=== PATIENT | male | born 1960 | race Caucasian/White ===

== ENCOUNTER → 2019-03-30 | Outpatient (CLI) | payer BC ==
--- NOTE | 2019-03-30 14:28 | KCIC ---
EXAM: Lumbar spine, flexion and extension. HISTORY: Pain. COMPARISON: None. FINDINGS: Lateral neutral, flexion and extension views of the lumbar spine are obtained. There is grade 1 anterolisthesis of L4 on L5 in neutral position. This slightly increases with flexion. There is minimal retrolisthesis of L3 on L4 with flexion and L2 on L3 with extension. There is multilevel endplate remodeling with anterior predominant spurring. There is facet arthropathy predominantly at the mid lower lumbar levels. IMPRESSION: 1. Multilevel degenerative change, described above. 2. Grade 1 anterolisthesis of L4 and L5 which slightly increases with flexion, retrolisthesis of L3 on L4 with flexion and retrolisthesis of L2 on L3 with extension. Electronically signed by: Jessi Mejias MD (03/30/2019 2:25 PM) [facility] [place]
== END | disposition home or self-care (01) ==
LOC: KCIC 12:26
PROVIDERS: ATTEND Neurological Surgery
DX: M47.816 Spondylosis without myelopathy or radiculopathy, lumbar region (principal); M43.16 Spondylolisthesis, lumbar region
CPT/HCPCS: 72100

== ENCOUNTER 2019-04-28 10:44 | Inpatient (IN) | payer BC ==
--- NOTE | 2019-04-27 17:32 | HP ---
ADMIT DATE: PREOPERATIVE HISTORY AND PHYSICAL This is Gonzalo Cano RN dictating for Dr. Gordo Hill. DATE OF SURGERY: 04/28/2019 HISTORY OF PRESENT ILLNESS: The patient is a pleasant 58-year-old, who has problems with both neck and lower back pain. He relates that his neck pain is more severe than his lower back pain. He says that if he looks to the left, he develops pain, which radiates down his right arm. If he looks to the right, he develops pain that radiates down his left arm. He noticed weakness on his right side and in the right hand and says he can drop things. He has had difficulty with balance and stumbles frequently. He also complains of lower back pain. He states 2 years ago, he fell on the porch. He says that he has constant lower back pain and has difficulty with standing for any length of time. He notes increasing back pain with standing along with feelings of weakness in his legs. Cold makes the problem worse. Heat helps. He does take Palacios. He has had no conservative measures for his lower back. He did undergo epidural steroid injections in the past for his neck. PAST MEDICAL HISTORY: Arthritis, gout, hypertension, head or neck injury, and kidney stones. PAST SURGICAL HISTORY: Appendectomy in 1984, cervical surgery in 2002, cervical surgery in 2007, tonsillectomy in 2012, and 2 finger surgeries, 3 knee surgeries. FAMILY HISTORY: Cancer, heart problems or disease, and hypertension. 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 ALLERGIES: HYDROGEN PEROXIDE. CURRENT MEDICATIONS: Omeprazole, allopurinol, lisinopril, hydrocodone/acetaminophen, ibuprofen, multivitamin, vegetable laxative, meloxicam, hydrochlorothiazide, aspirin, Ambien, and gabapentin. REVIEW OF SYSTEMS: A 12-point review of systems was obtained and is noncontributory except for that mentioned above. PHYSICAL EXAMINATION: GENERAL APPEARANCE: On neurosurgical examination, alert, pleasant, no acute distress. HEAD: Normocephalic and atraumatic. NECK AND THYROID: Aksv-od-ihzdpjyy tenderness with palpation of posterior cervical region. SKIN: Warm and dry. BACK: Tenderness with palpation of the lower lumbar spine. MUSCULOSKELETAL: Cervical and lumbar paraspinal muscle bulk is normal; cervical and lumbar range of motion is restricted; normal range of motion of the upper extremities bilaterally. EXTREMITIES: No clubbing, cyanosis, or edema. NEUROLOGIC: Alert and oriented x3; normal recent and remote memory; strength 5/5 in bilateral lower and upper extremities except for hand grasp that was 4+/5 bilaterally. Sensory was intact to light touch in the upper and lower extremities. Reflexes were present and symmetric in the upper and lower extremities bilaterally except for absent knee jerk bilaterally, normal gait. IMAGING: Reviewed. I reviewed a cervical MRI scan. On that study, there is moderate cervical spinal stenosis present at C3-C4 and C4-C5. The cord is flattened; however, I did not see hyperintensity with spinal cord. On lumbar MRI scan, there is a grade 1 anterolisthesis of L4 and L5. At that level, there is severe central canal stenosis. The central canal is measuring about 5 mm in diameter. Flexion and extension films were performed in which there is about 4 mm of anterolisthesis of L4 and L5, which increases slightly with flexion. ASSESSMENT: 1. Spinal stenosis, cervical region. 2. Other spondylosis with radiculopathy, cervical region. 3. Spinal stenosis, lumbar region with neurogenic claudication. 4. Spondylolisthesis, lumbar region. PLAN: I do think that the patient has symptomatic cervical spinal stenosis. He could benefit from a cervical laminectomy with lateral mass fusion with instrumentation. With regard to his lower back, he does have severe stenosis and spondylolisthesis at L4-L5. At some point, he may require an instrumented fusion and laminectomy at that level. I discussed all this with him. We discussed the technique, risks, and expected postoperative course. He understands. He would like to go ahead. We will make the arrangements. GORDO HILL MD DR: MALOU/chloe JOB#: [id number] / [id number]
[2019-04-28] VITALS (9 sets, daily range): BP systolic 74–130; BP diastolic 45–90
[~2019-04-28] VITALS: Ht 177.8 cm; Wt 104.1 kg
[~2019-04-28 10:44] MED LIST: ALLO300T PO; ASPI-630 PO; BACITRACIN 50,000 UNIT in IV NORMAL SALINE 1000ML BAG 1,000 ML IRR ONE; GABA600T7 PO; HYDR-2769 PO; HYDR25TA10 PO; HYDROmorphone 2 MG/ML VIAL IV PRN; IV RINGERS,LACTATED 1000ML 1,000 ML IV SCH; MELO15TA23 PO; MORPHINE SULFATE 2 MG/ML VIAL. IV PRN; MULT-245 PO; OMEP40CA45 PO; ONDANSETRON PF 4 MG/2 ML VIAL. IV PRN; PROCHLORPERAZINE 10 MG/2 ML VIAL. IV PRN; SENN8.6T61 PO; ZOLP5TAB5 PO; fentaNYL PF VIAL 100 MCG/2 ML VIAL IV PRN
[2019-04-28] MEDS ORDERED: PROPOFOL 100 ML IV ONE (10:54)
[2019-04-28] MEDS ORDERED: GLYCOPYRROLATE 1 MG/5 ML VIAL. ONE (10:58)
[2019-04-28] MEDS ORDERED: MIDAZOLAM HCL/PF 2 MG/2 ML VIAL. ONE (10:59)
[2019-04-28] MEDS ORDERED: ROCURONIUM 50 MG/5 ML VIAL. ONE (10:59)
[2019-04-28] MEDS ORDERED: fentaNYL PF VIAL 100 MCG/2 ML VIAL ONE ×2 (10:59→18:07)
[2019-04-28] MEDS ORDERED: NEOSTIGMINE METHYLSULFATE 5 MG/5 ML SYRINGE. ONE (10:59)
[2019-04-28] MEDS ORDERED: PHENYLEPHRINE 10 MG/ML VIAL. ONE (10:59)
[2019-04-28] MEDS ORDERED: PROPOFOL 20 ML IV ONE (11:00)
[2019-04-28] MEDS ORDERED: ONDANSETRON PF 4 MG/2 ML VIAL. ONE (11:00)
[2019-04-28] MEDS ORDERED: LIDOCAINE 2% PF 5 ML VIAL. ONE (11:00)
[2019-04-28] MEDS ORDERED: DEXAMETHASONE SOD PHOS 20 MG/5 ML VIAL. ONE ×2 (11:00)
[2019-04-28] MEDS ORDERED: REMIFENTANIL 2 MG VIAL. IV ONE (11:03)
[2019-04-28] MEDS ORDERED: KETOROLAC 60 MG/2 ML VIAL. ONE (11:50)
[2019-04-28] MEDS ORDERED: BUPIVACAINE-EPI 0.5%-1:200000 MPF 30 ML VIAL. ONE (11:50)
[2019-04-28] MEDS ORDERED: GELATIN SPONGE SIZE 100. ONE (11:50)
[2019-04-28] MEDS ORDERED: THROMBIN TOPICAL 20,000 UNIT SPRAY.SYRN KIT TP ONE (11:50)
[2019-04-28] MEDS ORDERED: POVIDONE-IODINE 10% TOPICAL OINTMENT 28GM TUBE. TP ONE (13:10)
[2019-04-28] MEDS ORDERED: ePHEDrine PF IN SALINE 50 MG/10 ML SYRINGE. IV ONE (13:37)
[2019-04-28] MEDS ORDERED: REMIFENTANIL 1 MG VIAL. IV ONE (16:31)
[2019-04-28] MEDS ORDERED: ESMOLOL 100 MG/10 ML VIAL. IVP ONE (17:30)
[2019-04-28] MEDS ORDERED: oxyCODONE/APAP 5/325 1 TAB TABLET PO PRN (18:00)
[2019-04-28] MEDS ORDERED: diphenhydrAMINE HCL 25 MG CAPSULE PO PRN (18:00)
[2019-04-28] MEDS ORDERED: ONDANSETRON PF 4 MG/2 ML VIAL. IVP PRN (18:00)
[2019-04-28] MEDS ORDERED: CALCIUM CARBONATE 500 MG TAB.CHEW PO PRN (18:00)
[2019-04-28] MEDS ORDERED: NALOXONE 0.4 MG/ML VIAL. IV PRN (18:00)
[2019-04-28] MEDS ORDERED: ACETAMINOPHEN 325 MG TABLET. PO PRN (18:00)
[2019-04-28] MEDS ORDERED: MAG HYDROX/ALUMINUM HYD/SIMETH 30 ML ORAL.SUSP PO PRN (18:00)
[2019-04-28] MEDS ORDERED: MAGNESIUM HYDROXIDE 2,400 MG/30 ML ORAL.SUSP. PO PRN (18:00)
[2019-04-28] MEDS ORDERED: 0.9 % SODIUM CHLORIDE 10 ML DISP.SYRIN. IV PRN (18:00)
[2019-04-28] MEDS: fentaNYL PF VIAL 100 MCG/2 ML VIAL IV PRN ×2 (18:10→18:19)
[2019-04-28] MEDS ORDERED: HYDROmorphone 2 MG/ML VIAL ONE (18:28)
--- NOTE | 2019-04-28 19:40 | OP ---
DATE OF SURGERY: 04/28/2019 PREOPERATIVE DIAGNOSES: Cervical spinal stenosis C3-C4, C4-C5 with cervical myelopathy. POSTOPERATIVE DIAGNOSES: Cervical spinal stenosis C3-C4, C4-C5 with cervical myelopathy. OPERATION PERFORMED: Posterior cervical laminectomy C3, C4, C5 with posterior lateral mass instrumentation and facet fusion. SURGEON: Gordo Hill M.D. HISTOPATHOLOGIST: PAIGE Montez; assisted with the instrumentation, laminectomy and closure. OPERATIVE INDICATIONS: The patient is a pleasant 58-year-old man who developed intractable problems with numbness in his forearms and hands. He was dropping objects. He was unsteady with regard to his gait and he had the above-mentioned findings on imaging studies. I recommended a posterior cervical surgery. I spoke with him about the surgery and the risks. He understood and he wished to go ahead. DESCRIPTION OF PROCEDURE: Following general endotracheal anesthesia, the patient was positioned prone on the Juice table in Bailey pins. His posterior cervical region was then clipped, prepped and draped in the standard fashion. DIONISIO hose and AV impulse boots were applied for DVT prophylaxis. The microscope was draped. Fluoroscopy was draped and brought into the field. Monitoring was established. Ancef 2 g was given less than 1 hour prior to the initiation of the surgery. Using fluoroscopic guidance, a midline incision was made extending from the base of the skull, inferiorly to about C6. I dissected down through skin and subcutaneous tissue, reflected the paraspinal muscles and placed self-retaining retractors. I brought in the high speed air drill and I drilled small openings in the lateral masses of C3, C4 and C5 and then drilled and then placed 10 mm screws into each of those levels bilaterally. I bent rods, which were cut to fit and placed within the screws and the nuts were applied and the system was torqued. I then brought in the microscope and using microscopic technique and the high speed bur, I gently drilled troughs on each side extending from C3-C5 and then with a 2 mm micro Kerrison, I performed a laminectomy from superiorly to inferiorly on each. The lamina and the spinous processes were removed posteriorly. I grasped this process inferiorly, freed it up and began to free this up and peel the spinous processes and lamina away from C5, C4, and C3, lifting these away. I then explored carefully. I felt I had an excellent decompression. I did excoriate the bone and the facets bilaterally and placed autograft bone from the lamina into these spaces bilaterally. I irrigated copiously with antibiotic solution. I confirmed my surgery fluoroscopically and then I closed the wound in layers with absorbable suture and the skin was closed with skin julio c. The patient was awakened uneventfully with excellent strength in his upper and lower extremities. I was quite pleased with the surgery. GORDO HILL MD DR: MALOU/chloe JOB#: [id number] / [id number] MICHELLE
[2019-04-28] MEDS: oxyCODONE/APAP 5/325 1 TAB TABLET PO PRN (19:49)
[2019-04-28] MEDS: POTASSIUM CL 20MEQ D5-0.45NACL 1,000 ML IV SCH (19:51)
[2019-04-28] MEDS: DOCUSATE SODIUM 100 MG CAPSULE. PO SCH (21:36)
[2019-04-28] MEDS: GABAPENTIN 300 MG CAPSULE. PO SCH (21:36)
[2019-04-28] MEDS: fentaNYL PF VIAL 100 MCG/2 ML VIAL IVP PRN (21:36)
[2019-04-28] MEDS: ceFAZolin SODIUM IV Push 1 GM VIAL. IVP SCH (21:42)
--- NOTE | 2019-04-28 22:53 | NUR ---
Pt. arrived on unit at 1850 by bed from PACU. Bedside report was given to this RN by day shift floor RN. Pt. complains pain is 8/10. Pt. is on 2L NC and pleasant. Explained to pt. the need to urinate within 6 hours. Bed is in lowest position with call light in reach. Will continue to monitor.
[2019-04-28] MEDS: ZOLPIDEM 5 MG TABLET. PO PRN (23:07)
[2019-04-29 03:00] VITALS: BP 106/76
[2019-04-29] MEDS: PANTOPRAZOLE 40 MG TABLET.DR. PO SCH (07:13)
[2019-04-29] MEDS: ceFAZolin SODIUM IV Push 1 GM VIAL. IVP SCH ×2 (07:13→13:47)
[2019-04-29 07:15] VITALS: BP 127/71
--- NOTE | 2019-04-29 08:00 | NUR ---
dressing changed to posterior neck. cleansed with chlor prep,telfa and 4x4's. states the numbness is going away just a little in her right hand. rating her pain "5'
[2019-04-29] MEDS: MULTIVITAMIN with MINERAL TABLET. PO SCH (08:06)
[2019-04-29] MEDS: METHOCARBAMOL 750 MG TABLET PO PRN ×2 (08:06→13:49)
[2019-04-29] MEDS: ASPIRIN CHEWABLE 81 MG TABLET. PO SCH (08:06)
[2019-04-29] MEDS: DOCUSATE SODIUM 100 MG CAPSULE. PO SCH ×2 (08:06→22:27)
[2019-04-29] MEDS: GABAPENTIN 300 MG CAPSULE. PO SCH ×2 (08:07→22:27)
[2019-04-29] MEDS: ALLOPURINOL 300 MG TABLET. PO SCH (08:07)
[2019-04-29] MEDS: SENNOSIDES 8.6 MG TABLET PO SCH (08:07)
[2019-04-29] MEDS: hydroCHLOROthiazide 25 MG TABLET PO SCH (08:08)
[2019-04-29] MEDS: POTASSIUM CL 20MEQ D5-0.45NACL 1,000 ML IV SCH ×2 (08:50→22:28)
--- NOTE | 2019-04-29 09:24 | NUR ---
SW following. Discussed with RN, pt from home. PT ordered. RN anticipates possible discharge home today. SW will continue to follow.
[2019-04-29 11:10] VITALS: BP 136/76
[2019-04-29] MEDS: oxyCODONE/APAP 5/325 1 TAB TABLET PO PRN ×2 (11:39→20:12)
--- NOTE | 2019-04-29 14:00 | NUR ---
sitting up in recliner. ambulated in hallway. pain is a "5". muscle relaxant given and dressing changed same as before.
[2019-04-29 15:07] VITALS: BP 144/90
--- NOTE | 2019-04-29 17:00 | NUR ---
Edilberto is resting in bed.states that he catnapped but now his pain is "10" tearful given fentanyl iv.
[2019-04-29] MEDS: fentaNYL PF VIAL 100 MCG/2 ML VIAL IVP PRN ×3 (17:07→22:29)
--- NOTE | 2019-04-29 18:30 | NUR ---
don states that the pain is very slightly less--"9" re-medicated with fentanyl and returned to bed. voided per urinal. ice remain to back of neck
[2019-04-29 19:00] VITALS: BP 131/89
[2019-04-29 23:00] VITALS: BP 129/88
[2019-04-30 03:00] VITALS: BP 150/89
[2019-04-30] MEDS: fentaNYL PF VIAL 100 MCG/2 ML VIAL IVP PRN ×4 (03:02→16:12)
[2019-04-30 07:00] VITALS: BP 136/86
[2019-04-30] MEDS: SENNOSIDES 8.6 MG TABLET PO SCH (08:14)
[2019-04-30] MEDS: ASPIRIN CHEWABLE 81 MG TABLET. PO SCH (08:14)
[2019-04-30] MEDS: MULTIVITAMIN with MINERAL TABLET. PO SCH (08:14)
[2019-04-30] MEDS: DOCUSATE SODIUM 100 MG CAPSULE. PO SCH ×2 (08:14→20:56)
[2019-04-30] MEDS: GABAPENTIN 300 MG CAPSULE. PO SCH ×2 (08:15→20:56)
[2019-04-30] MEDS: ALLOPURINOL 300 MG TABLET. PO SCH (08:15)
[2019-04-30] MEDS: oxyCODONE/APAP 5/325 1 TAB TABLET PO PRN (08:15)
[2019-04-30] MEDS: hydroCHLOROthiazide 25 MG TABLET PO SCH (08:15)
[2019-04-30] MEDS: PANTOPRAZOLE 40 MG TABLET.DR. PO SCH (08:15)
--- NOTE | 2019-04-30 09:56 | PDOC ---
PROGRESS NOTES Subjective Subjective POD #2 sitting up in chair c/o severe neck/ incision pain worsened overnight numbness in hands remains gone Objective Objective Vital Signs Date Time Temp Pulse Resp B/P (MAP) Pulse Ox O2 Delivery O2 Flow Rate FiO2 04/30/19 09:28 16 Room Air 04/30/19 07:00 98.7 81 136/86 (103) 94 98.7 04/29/19 09:00 1.5 Intake and Output 04/30/19 06:59 Intake Total 640 ml Output Total 1000 ml Balance -360 ml Intake Oral 640 ml Output Urine Total 1000 ml # Voids 5 # Bowel Movements 1 Physical Exam General: Alert, Oriented X3, Cooperative MUSCULOSKELETAL: Other (LUA) Neuro: Normal speech Skin: Other (dressing dry and intact) Plan Plan of Care change pain medicine add steroids encouraged increased activity as tolerated D/W RN Comment Review of Relevant I have reviewed the following items manny (where applicable) has been applied. Medications Current Medications Bacitracin 31961 unit/Sodium Chloride 1,000 ml @ 1,000 mls/hr 1X ONCE IRR Last administered on 04/28/19at 14:43; Start 04/28/19 at 06:00; Stop 04/28/19 at 06:59; Status DC Ondansetron HCl (Zofran) 4 mg PRN Q6HRS PRN IV NAUSEA/VOMITING; Start 04/28/19 at 07:00; Stop 04/29/19 at 06:59; Status DC Fentanyl Citrate (Fentanyl 2ml Vial) 25 mcg PRN Q5MIN PRN IV MILD PAIN 1-3; Start 04/28/19 at 07:00; Stop 04/29/19 at 06:59; Status DC Fentanyl Citrate (Fentanyl 2ml Vial) 50 mcg PRN Q5MIN PRN IV MODERATE TO SEVERE PAIN Last administered on 04/28/19at 18:10; Start 04/28/19 at 07:00; Stop 04/29/19 at 06:59; Status DC Morphine Sulfate (Morphine Sulfate) 1 mg PRN Q10MIN PRN IV SEVERE PAIN 7-10; Start 04/28/19 at 07:00; Stop 04/29/19 at 06:59; Status DC Ringer's Solution 1,000 ml @ 30 mls/hr Q24H IV Last administered on 04/28/19at 11:22; Start 04/28/19 at 07:00; Stop 04/28/19 at 18:59; Status DC Hydromorphone HCl (Dilaudid) 0.5 mg PRN Q10MIN PRN IV SEV PAIN, Second choice Last administered on 04/28/19at 18:30; Start 04/28/19 at 07:00; Stop 04/29/19 at 06:59; Status DC Prochlorperazine Edisylate (Compazine) 5 mg PACU PRN PRN IV NAUSEA, MRX1; Start 04/28/19 at 07:00; Stop 04/29/19 at 06:59; Status DC Cefazolin Sodium/ Dextrose 50 ml @ 100 mls/hr 1X ONCE IV Last administered on 04/28/19at 14:10; Start 04/28/19 at 06:00; Stop 04/28/19 at 06:29; Status DC Propofol 100 ml @ As Directed STK-MED ONCE IV ; Start 04/28/19 at 10:54; Stop 04/28/19 at 10:54; Status DC Glycopyrrolate (Robinul) 1 mg STK-MED ONCE .ROUTE ; Start 04/28/19 at 10:58; Stop 04/28/19 at 10:59; Status DC Fentanyl Citrate (Fentanyl 2ml Vial) 100 mcg STK-MED ONCE .ROUTE ; Start 04/28/19 at 10:59; Stop 04/28/19 at 10:59; Status DC Rocuronium [place] (Zemuron) 50 mg STK-MED ONCE .ROUTE ; Start 04/28/19 at 10:59; Stop 04/28/19 at 10:59; Status DC Neostigmine [place] (Neostigmine Methylsulfate) 5 mg STK-MED ONCE .ROUTE ; Start 04/28/19 at 10:59; Stop 04/28/19 at 10:59; Status DC Midazolam HCl (Versed) 2 mg STK-MED ONCE .ROUTE ; Start 04/28/19 at 10:59; Stop 04/28/19 at 10:59; Status DC Phenylephrine HCl (Erickson-Synephrine Inj) 10 mg STK-MED ONCE .ROUTE ; Start 04/28/19 at 10:59; Stop 04/28/19 at 11:00; Status DC Propofol 20 ml @ As Directed STK-MED ONCE IV ; Start 04/28/19 at 11:00; Stop 04/28/19 at 11:00; Status DC Dexamethasone Sodium Phosphate (Decadron) 20 mg STK-MED ONCE .ROUTE ; Start 04/28/19 at 11:00; Stop 04/28/19 at 11:00; Status DC Dexamethasone Sodium Phosphate (Decadron) 20 mg STK-MED ONCE .ROUTE ; Start 04/28/19 at 11:00; Stop 04/28/19 at 11:00; Status DC Ondansetron HCl (Zofran) 4 mg STK-MED ONCE .ROUTE ; Start 04/28/19 at 11:00; Stop 04/28/19 at 11:00; Status DC Lidocaine HCl (Lidocaine Pf 2% Vial) 5 ml STK-MED ONCE .ROUTE ; Start 04/28/19 at 11:00; Stop 04/28/19 at 11:00; Status DC Remifentanil HCl (Ultiva) 2 mg STK-MED ONCE IV ; Start 04/28/19 at 11:03; Stop 04/28/19 at 11:03; Status DC Gelatin (Gelfoam Size 100) 1 each STK-MED ONCE .ROUTE Last administered on 04/28/19at 14:43; Start 04/28/19 at 11:50; Stop 04/28/19 at 11:50; Status DC Bupivacaine HCl/ Epinephrine Bitart (Sensorcain-Epi 0.5%-1:041502 Mpf) 30 ml STK-MED ONCE .ROUTE Last administered on 04/28/19at 14:43; Start 04/28/19 at 11:50; Stop 04/28/19 at 11:50; Status DC Ketorolac Tromethamine (Toradol Im) 60 mg STK-MED ONCE .ROUTE Last administered on 04/28/19at 14:43; Start 04/28/19 at 11:50; Stop 04/28/19 at 11:51; Status DC Thrombin 20,000 unit STK-MED ONCE TP Last administered on 04/28/19at 14:43; Start 04/28/19 at 11:50; Stop 04/28/19 at 11:51; Status DC Povidone Iodine ( Betadine Oint) 28 oracio STK-MED ONCE TP ; Start 04/28/19 at 13:10; Stop 04/28/19 at 13:10; Status DC Ephedrine Sulfate (ePHEDrine PF IN SALINE SYRINGE) 50 mg STK-MED ONCE IV ; Start 04/28/19 at 13:37; Stop 04/28/19 at 13:38; Status DC Remifentanil HCl (Ultiva) 1 mg STK-MED ONCE IV ; Start 04/28/19 at 16:31; Stop 04/28/19 at 16:32; Status DC Esmolol HCl (Brevibloc) 100 mg STK-MED ONCE IVP ; Start 04/28/19 at 17:30; Stop 04/28/19 at 17:31; Status DC Allopurinol (Zyloprim) 300 mg DAILY PO Last administered on 04/30/19 08:15; Start 04/29/19 at 09:00 Aspirin (Children'S Aspirin) 81 mg DAILY PO Last administered on 04/30/19at 08:14; Start 04/29/19 at 09:00 Hydrochlorothiazide (Hydrodiuril) 25 mg DAILY PO Last administered on 04/30/19at 08:15; Start 04/29/19 at 09:00 Sennosides (Senna) 8.6 mg DAILY PO Last administered on 04/30/19 08:14; Start 04/29/19 at 09:00 Zolpidem Tartrate (Ambien) 10 mg PRN QHS PRN PO INSOMNIA Last administered on 04/28/19at 23:07; Start 04/28/19 at 18:00 Gabapentin (Neurontin) 300 mg BID PO Last administered on 04/30/19 08:15; Start 04/28/19 at 21:00 Multivitamins (Thera M Plus) 1 tab DAILY PO Last administered on 04/30/19 08:14; Start 04/29/19 at 09:00 Pantoprazole Sodium (Protonix) 40 mg DAILYAC PO Last administered on 04/30/19 08:15; Start 04/29/19 at 07:30 Fentanyl Citrate (Fentanyl 2ml Vial) 100 mcg STK-MED ONCE .ROUTE ; Start 04/28/19 at 18:07; Stop 04/28/19 at 18:07; Status DC Fentanyl Citrate (Fentanyl 2ml Vial) 50 mcg PRN Q2HR PRN IVP PAIN Last administered on 3/20/20at 09:25; Start 04/28/19 at 18:00 Acetaminophen (Tylenol) 650 mg PRN Q6HRS PRN PO MILD PAIN / TEMP; Start 04/28/19 at 18:00 Al Hydroxide/Mg Hydroxide (Mylanta Plus Xs) 30 ml PRN Q3HRS PRN PO HEARTBURN / GAS; Start 04/28/19 at 18:00 Calcium Carbonate/ Glycine (Tums) 500 mg PRN Q3HRS PRN PO INDIGESTION; Start 04/28/19 at 18:00 Diphenhydramine HCl (Benadryl) 25 mg PRN Q6HRS PRN PO ITCHING; Start 04/28/19 at 18:00 Naloxone HCl (Narcan) 0.1 mg PRN Q2MIN PRN IV ADMIN; Start 04/28/19 at 18:00 Sodium Chloride (Normal Saline Flush) 3 ml QSHIFT PRN IV AFTER MEDS AND BLOOD DRAWS; Start 04/28/19 at 18:00 Potassium Chloride/Dextrose/ Sod Cl 1,000 ml @ 75 mls/hr [id number] IV Last administered on 04/29/19at 22:28; Start 04/28/19 at 19:30 Oxycodone/ Acetaminophen (Percocet 5/325) 1 tab PRN Q4HRS PRN PO MILD PAIN, 1ST CHOICE Last administered on 04/29/19at 08:06; Start 04/28/19 at 18:00; Stop 04/30/19 at 09:52; Status DC Oxycodone/ Acetaminophen (Percocet 5/325) 2 tab PRN Q4HRS PRN PO MODERATE PAIN, SEVERE PAIN Last administered on 04/30/19at 08:15; Start 04/28/19 at 18:00; Stop 04/30/19 at 09:52; Status DC Methocarbamol (Robaxin) 750 mg TID PRN PO MUSCLE SPASMS Last administered on 04/29/19at 13:49; Start 04/28/19 at 18:00 Docusate Sodium (Colace) 100 mg BID PO Last administered on 04/30/19at 08:14; Start 04/28/19 at 21:00 Magnesium Hydroxide (Milk Of Magnesia) 2,400 mg PRN Q12HR PRN PO CONSTIPATION; Start 04/28/19 at 18:00 Ondansetron HCl (Zofran) 4 mg PRN Q6HRS PRN IVP NAUESA, 1ST CHOICE; Start 04/28/19 at 18:00 Cefazolin Sodium (Ancef) 1 gm Q8HRS IVP Last administered on 04/29/19at 13:47; Start 04/28/19 at 22:00; Stop 04/29/19 at 14:01; Status DC Hydromorphone HCl (Dilaudid) 2 mg STK-MED ONCE .ROUTE ; Start 04/28/19 at 18:28; Stop 04/28/19 at 18:28; Status DC Oxycodone HCl (Roxicodone) 10 mg Q4HRS PRN PO PAIN; Start 04/30/19 at 10:00; Status UNV Active Scripts Active Reported Gabapentin 600 Mg Tablet 300 Mg PO BID Vegetable Laxative (Sennosides) 8.6 Mg Tablet 8.6 Mg PO DAILY Multi Vitamin Daily (Multivitamin) 1 Each Tablet 1 Each PO DAILY Aspirin 81 Mg Tab.chew 81 Mg PO DAILY Allopurinol 300 Mg Tablet 300 Mg PO DAILY Omeprazole 40 Mg Capsule.dr 40 Mg PO DAILY Hydrochlorothiazide 25 Mg Tablet 25 Mg PO DAILY Meloxicam 15 Mg Tablet 15 Mg PO DAILY Zolpidem Tartrate 5 Mg Tablet 110 Mg PO PRN QHS PRN Hydrocodone-Apap 10-325 (Hydrocodone Bit/Acetaminophen) 1 Tab Tablet 1 Tab PO PRN Q6HRS PRN Vitals/I & O Vital Sign - Last 24 Hours 04/29/19 04/29/19 04/29/19 04/29/19 11:10 11:39 12:30 15:07 Temp 97.9 98.1 97.9 98.1 Pulse 81 86 Resp 16 20 18 B/P (MAP) 136/76 (96) 144/90 (108) Pulse Ox 97 96 O2 Delivery Room Air Room Air Room Air 04/29/19 04/29/19 04/29/19 04/29/19 17:30 18:23 19:00 19:00 Temp 98.5 98.5 Pulse 86 Resp 20 16 20 16 B/P (MAP) 131/89 (103) Pulse Ox 91 O2 Delivery Room Air 04/29/19 04/29/19 04/29/19 04/29/19 20:12 20:15 22:29 22:29 O2 Delivery Room Air Room Air Room Air Room Air 04/29/19 04/29/19 04/30/19 04/30/19 23:00 23:41 03:00 03:02 Temp 98.5 98.5 98.5 98.5 Pulse 75 79 Resp 18 18 B/P (MAP) 129/88 (102) 150/89 (109) Pulse Ox 92 93 O2 Delivery Room Air Room Air 04/30/19 04/30/19 04/30/19 04/30/19 03:32 06:45 07:00 07:49 Temp 98.7 98.7 Pulse 81 Resp 14 16 B/P (MAP) 136/86 (103) Pulse Ox 94 O2 Delivery Room Air Room Air Room Air Room Air 04/30/19 04/30/19 04/30/19 08:15 09:25 09:28 Resp 18 20 16 O2 Delivery Room Air Room Air Room Air Intake and Output 0 04/29/19 04/29/19 04/30/19 14:59 22:59 06:59 Intake Total 640 ml Output Total 1000 ml Balance -360 ml FEROZ HILL MD Apr 30, 2019 09:56
[2019-04-30] MEDS ORDERED: DEXAMETHASONE SOD PHOS 20 MG/5 ML VIAL. IV ONE (10:00)
[2019-04-30] MEDS: oxyCODONE IR 5 MG TABLET PO PRN ×3 (10:34→20:04)
[2019-04-30 11:00] VITALS: BP 125/75
[2019-04-30] MEDS: POTASSIUM CL 20MEQ D5-0.45NACL 1,000 ML IV SCH (11:30)
--- NOTE | 2019-04-30 11:38 | NUR ---
SW following. Discussed with RN, pt from home, room air. PT recommending home. RN advised no SW needs at this time. SW will continue to follow.
[2019-04-30 15:00] VITALS: BP 128/84
[2019-04-30] MEDS: DEXAMETHASONE SOD PHOS 4 MG/ML VIAL IVP SCH (17:32)
[2019-04-30 19:00] VITALS: BP 125/84
[2019-04-30] MEDS: ZOLPIDEM 5 MG TABLET. PO PRN (20:56)
[2019-04-30 23:00] VITALS: BP 120/77
[2019-05-01] MEDS: DEXAMETHASONE SOD PHOS 4 MG/ML VIAL IVP SCH ×3 (00:05→12:24)
[2019-05-01] MEDS: oxyCODONE IR 5 MG TABLET PO PRN ×4 (00:06→14:39)
[2019-05-01] MEDS: POTASSIUM CL 20MEQ D5-0.45NACL 1,000 ML IV SCH ×2 (00:50→14:10)
[2019-05-01 03:00] VITALS: BP 125/83
[2019-05-01 07:59] VITALS: BP 127/81
[2019-05-01] MEDS: MULTIVITAMIN with MINERAL TABLET. PO SCH (08:04)
[2019-05-01] MEDS: SENNOSIDES 8.6 MG TABLET PO SCH (08:04)
[2019-05-01] MEDS: DOCUSATE SODIUM 100 MG CAPSULE. PO SCH (08:04)
[2019-05-01] MEDS: ASPIRIN CHEWABLE 81 MG TABLET. PO SCH (08:04)
[2019-05-01] MEDS: PANTOPRAZOLE 40 MG TABLET.DR. PO SCH (08:04)
[2019-05-01] MEDS: ALLOPURINOL 300 MG TABLET. PO SCH (08:05)
[2019-05-01] MEDS: GABAPENTIN 300 MG CAPSULE. PO SCH (08:05)
[2019-05-01] MEDS: hydroCHLOROthiazide 25 MG TABLET PO SCH (08:05)
[2019-05-01] MEDS: METHOCARBAMOL 750 MG TABLET PO PRN ×2 (08:06→14:39)
[2019-05-01] MEDS ORDERED: DOCU-153 PO (11:32)
[2019-05-01] MEDS ORDERED: OXYC5TAB4 PO (11:32)
[2019-05-01] MEDS ORDERED: METH750T2 PO (11:32)
--- NOTE | 2019-05-01 11:32 | DS ---
DATE OF DISCHARGE: 05/01/2019 DISCHARGE DIAGNOSIS: Cervical spinal stenosis at C3-C4, C4-C5 with cervical myelopathy. OPERATION PERFORMED: Posterior cervical laminectomy C3, C4, C5 with posterior lateral mass instrumentation and facet fusion. HISTORY OF PRESENT ILLNESS: The patient is a pleasant 58-year-old man who developed intractable problems with numbness in his forearms and hands. He was dropping objects. He was unsteady with regard to his gait and he had the above-mentioned findings on imaging studies. I recommended posterior cervical surgery. He understood the surgery including the risk and the expected postoperative course and wished to proceed. HOSPITAL COURSE: He was admitted to the floor postoperatively where he has done well. His pain is now managed and controlled well with his current pain medication regimen. He was able to be up with physical therapy and ambulating in the room and halls. Instruction was given to him regarding his activities. He is in good condition to discharge home now. DISCHARGE MEDICATIONS: Resume his medications per the MRAD. DISCHARGE INSTRUCTIONS: He was instructed regarding incision care, activity restrictions and expectations for the next several weeks. He will follow up in our office in 2 weeks. He understands to call with any questions or concerns. He did note resolution of the numbness in his arms and hands. FEROZ HILL MD DR: SU/chloe JOB#: [id number] / [id number]
--- NOTE | 2019-05-01 11:33 | DISCH ---
DISCHARGE INSTRUCTIONS Condition on Discharge Condition on Discharge: Stable Activity After Discharge Activity Instructions for Disc: Activity as tolerated, Avoid exertion Other activity instructions: no driving Bathing Instructions: Shower-keep dressing dry Lifting Instructions after Dis: No heavy lifting, No pulling or pushing, Do not lift >10 pounds Driving Instructions after Dis: No driving for 2 weeks Diet after Discharge Additional Diet Restrictions: resume home diet Wound Incision Care Wound/Incision Care: Ice to area for comfort Other wound/incision instructi: may remove dressing in 48 hours if dry, ok to keep covered, no soaking Contacting the DRConnor after DC Call your doctor for: Concerns you may have Follow-Up Follow up with: Dr. Hill's nurse in 2 weeks [phone] FEROZ HILL MD May 01, 2019 11:33
[2019-05-01 11:59] VITALS: BP 148/76
--- NOTE | 2019-05-01 14:35 | NUR ---
Discharge teaching completed. IV site discontinued without difficulty. Pt states he understands his home medications and 2 new prescriptions. Pt was discharged to home via w/c, escorted out by staff to spouse's private vehicle. Teaching on dressing change done by Kimberly GIBSON
--- NOTE | 2019-05-03 16:06 | PATHOLOGY ---
[facility] Accession Number: [id number] . 01 Material submitted: . vertebral column - CERVICAL DECOMPRESSION . 01 Clinical history: . Cervical stenosis, spondylosis with radiculopathy . 02 Diagnosis: Segments of fibrocartilaginous, adipose, and skeletal muscle tissue and bone, cervical decompression: - Degenerative changes of fibrocartilaginous tissue. (JPM:pit 05/03/2019) QTP 05/03/2019 1545 Local . 02 Comment: There is no evidence of an acute inflammatory process or malignancy. . 02 Electronically signed: . Kenny Dillon MD, Pathologist NPI- [id number] . 01 Gross description: . The specimen is received in formalin, labeled "Rajiv Henriquez, cervical decompression". Received is a moderate amount of pale liu gritty tissue admixed with fragments of bone measuring 4.3 x 3.2 x 2.0 cm in aggregate dimensions. The specimen is submitted representatively in cassette A1, following decalcification. (CAA; 04/30/2019) QAC/QAC 05/03/2019 0920 Local . 02 Pathologist provided ICD-10: M50.30 . 02 CPT . 350119, [id number] Specimen Comment: A courtesy copy of this report has been sent to [phone] Specimen Comment: Report sent to Performed at: 01 [facility] [address], [place] [id number] MD Piyush Wilson MD Phone: [phone] Performed at: 02 [facility] [address], [place] [id number] MD Kenny Dillon MD Phone: [phone]
== END 2019-05-01 14:35 | disposition home or self-care (01) | DRG 472 ==
LOC: SURHIP 10:44 → 4 NORTH 19:15
PROVIDERS: ADMIT Neurological Surgery; ATTEND Neurological Surgery
PROC: 00NW0ZZ Release Cervical Spinal Cord, Open Approach (ICD-10-PCS; 2019-04-28)
PROC: 0RG1071 Fusion of Cervical Vertebral Joint with Autologous Tissue Substitute, Posterior Approach, Posterior Column, Open Approach (ICD-10-PCS; 2019-04-28)
PROC: 01N10ZZ Release Cervical Nerve, Open Approach (ICD-10-PCS; principal; 2019-04-28 12:30)
DX: M48.02 Spinal stenosis, cervical region (principal); G99.2 Myelopathy in diseases classified elsewhere; M47.22 Other spondylosis with radiculopathy, cervical region; M48.062 Spinal stenosis, lumbar region with neurogenic claudication; M19.90 Unspecified osteoarthritis, unspecified site; M10.9 Gout, unspecified; I10 Essential (primary) hypertension; M43.16 Spondylolisthesis, lumbar region; Z87.442 Personal history of urinary calculi; Z88.8 Allergy status to other drugs, medicaments and biological substances; Z80.9 Family history of malignant neoplasm, unspecified; Z82.49 Family history of ischemic heart disease and other diseases of the circulatory system
CPT/HCPCS: 36415; 76000; 86850; 86900; 86901; 88304; 88311; A7015; C1713; J0171; J0690; J0696; J1100; J1170; J1885; J2250; J2370; J2405; J2704; J2710; J3010; J3480; J3490; J7030; J7120; 97116; 97530; G0378

== ENCOUNTER → 2019-10-26 | Outpatient (CLI) | payer BC ==
[~2019-10-26] MED LIST changes: +ASPI81TA59 PO; -BACITRACIN 50,000 UNIT in IV NORMAL SALINE 1000ML BAG 1,000 ML IRR ONE; +DOCU-153 PO; +HYDR-2145 PO; +HYDR-2761 PO; -HYDROmorphone 2 MG/ML VIAL IV PRN; -IV RINGERS,LACTATED 1000ML 1,000 ML IV SCH; +LISI-130 PO; +METH750T2 PO; -MORPHINE SULFATE 2 MG/ML VIAL. IV PRN; -ONDANSETRON PF 4 MG/2 ML VIAL. IV PRN; +OXYC5TAB4 PO; -PROCHLORPERAZINE 10 MG/2 ML VIAL. IV PRN; +ZOLP10TA PO; -fentaNYL PF VIAL 100 MCG/2 ML VIAL IV PRN
[2019-10-26 14:23] LABS: BASO # 0.1 x10^3/uL (0.0-0.2); BASO % 1 % (0-3); EOS # 0.4 x10^3/uL (0.0-0.7); EOS % 5 % (0-3); HEMOGLOBIN 15.9 g/dL (13.0-17.5); LYMPH # 2.6 x10^3/uL (1.0-4.8); LYMPH % 31 % (24-48); MEAN CORPUSCULAR HEMOGLOBIN 33 pg (25-35); MEAN CORPUSCULAR HGB CONC 35 g/dL (31-37); MEAN CORPUSCULAR VOLUME 96 fL (79-100); MONO # 0.6 x10^3/uL (0.0-1.1); MONO % 8 % (0-9); NEUT # 4.6 x10^3/uL (1.8-7.7); NEUT % 56 % (31-73); PLATELET COUNT 234 x10^3/uL (140-400); RED BLOOD COUNT 4.78 x10^6/uL (4.30-5.70); RED CELL DISTRIBUTION WIDTH 13.6 % (11.5-14.5); WHITE BLOOD COUNT 8.3 x10^3/uL (4.0-11.0)
[2019-10-26 14:37] LABS: ALBUMIN/GLOBULIN RATIO 1.3 (1.0-1.7); CALCIUM 8.9 mg/dL (8.5-10.1); CREATININE 0.9 mg/dL (0.7-1.3); GFR 86.4; POTASSIUM 3.6 mmol/L (3.5-5.1); TOTAL BILIRUBIN 0.5 mg/dL (0.2-1.0); TOTAL PROTEIN 7.2 g/dL (6.4-8.2)
== END ==
LOC: SURGPAT 13:23
PROVIDERS: ATTEND Neurological Surgery
DX: Z01.812 Encounter for preprocedural laboratory examination (principal); M48.062 Spinal stenosis, lumbar region with neurogenic claudication; M54.16 Radiculopathy, lumbar region; Z20.828 Contact with and (suspected) exposure to other viral communicable diseases
CPT/HCPCS: 80053; 85025; 87641; U0003

== ENCOUNTER 2019-10-29 07:10 | Observation (INO) | payer BC ==
--- NOTE | 2019-10-28 15:46 | PREOP HP ---
DATE OF SERVICE: 10/29/2019 HISTORY OF PRESENT ILLNESS: The patient is a pleasant 59-year-old who in April 2019 underwent cervical laminectomy and fusion. He did well from that surgery. He is having increasing problems with lower back pain. He did present with both cervical and lumbar problems. He has had lower back pain. It radiates to his left thigh, left posterolateral thigh. The problem has been present for years, but it is gradually increasing. He has had difficulty getting up from a sitting position or standing. He rates his pain as a 5-6/10. He is taking Roosevelt twice a day. PAST MEDICAL HISTORY: 1. Arthritis. 2. Gout. 3. Head and neck injury. 4. Hypertension. 5. Kidney stones. PAST SURGICAL HISTORY: 1. Appendectomy in 1984. 2. Cervical surgery in 2002. 3. Cervical surgery in 2007. 4. Tonsillectomy in 2012. 5. Two finger surgeries. 6. Three knee surgeries. 7. Posterior cervical laminectomy C3, C4, C5 with posterior instrumentation and fusion in April 2019. FAMILY HISTORY: Family history of cancer, heart disease and hypertension. 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 . Exercises daily. Denies substance abuse. Denies tobacco use. Drinks alcohol 1-2 times per week. Drinks soda and tea daily. ALLERGIES: HYDROGEN PEROXIDE. CURRENT MEDICATIONS: 1. Omeprazole. 2. Allopurinol. 3. Lisinopril. 4. Multivitamin. 5. Vegetable laxative. 6. Meloxicam. 7. Hydrochlorothiazide. 8. Aspirin. 9. Ambien. 10. Gabapentin. 11. Zolpidem. 12. Roosevelt. REVIEW OF SYSTEMS: A 12-point review of systems was obtained and is noncontributory except for that mentioned above. PHYSICAL EXAMINATION: NEUROSURGERY EXAMINATION: GENERAL APPEARANCE: Alert, pleasant, in no acute distress. HEAD: Normocephalic and atraumatic. SKIN: Warm and dry. MUSCULOSKELETAL: Lumbar paraspinal muscle bulk is normal. Restricted range of motion of the lumbar spine. Mild to moderate tenderness of the lower lumbar spine with palpation. Normal range of motion of the lower extremities bilaterally. EXTREMITIES: No clubbing, cyanosis, or edema. NEUROLOGIC: Alert and oriented x 3. Normal recent and remote memory. Strength 5/5 in bilateral lower extremities. Sensory is intact to light touch in lower extremities. Reflexes were 2+ and symmetric in lower extremities bilaterally. Negative straight leg raising bilaterally, forward stooped posture. IMAGING: Reviewed. I reviewed a lumbar MRI scan from 10/08/2019. On that study, at L4-L5, there is a small anterolisthesis combined with significant lateral recess stenosis bilaterally and high-grade left foraminal narrowing. ASSESSMENT: 1. Spinal stenosis, lumbar region, with neurogenic claudication. 2. Radiculopathy, lumbar region. PLAN: I believe that problems at L4-L5 are responsible for a significant portion of his pain. I am recommending that he undergo left direct laminectomy at L4-L5. I spoke with him about the technique, surgery risks and expected postoperative course. He understands. He would like to go ahead. We will make the arrangements. FEROZ HILL MD DR: MALOU/chloe JOB#: [id number] / [id number]
[~2019-10-29] VITALS: Ht 177.8 cm; Wt 100.6 kg
[2019-10-29] VITALS (11 sets, daily range): BP systolic 93–138; BP diastolic 50–68
[~2019-10-29 07:10] MED LIST changes: +BACITRACIN 50,000 UNIT in IV NORMAL SALINE 1000ML BAG 1,000 ML IRR ONE; +BUPIVACAINE-EPI 0.5%-1:200000 MPF 30 ML VIAL. ONE; +GELATIN SPONGE SIZE 100. ONE; +HYDROmorphone 2 MG/ML VIAL IV PRN; +KETOROLAC 60 MG/2 ML VIAL. ONE; +LIDOCAINE 1% PF 2 ML VIAL. ID PRN; +ONDANSETRON PF 4 MG/2 ML VIAL. IV PRN; +THROMBIN TOPICAL 20,000 UNIT SPRAY.SYRN KIT TP ONE; +fentaNYL PF VIAL 100 MCG/2 ML VIAL IV PRN
[2019-10-29] MEDS: IV RINGERS,LACTATED 1000ML 1,000 ML IV SCH ×2 (07:51→11:23)
[2019-10-29] MEDS ORDERED: PROPOFOL 10 MG/ML (20ML) VIAL. IV ONE (08:30)
[2019-10-29] MEDS ORDERED: DEXAMETHASONE SOD PHOS 20 MG/5 ML VIAL. ONE (08:30)
[2019-10-29] MEDS ORDERED: LIDOCAINE 2% PF 5 ML VIAL. ONE (08:30)
[2019-10-29] MEDS ORDERED: PHENYLEPHRINE in 0.9% NACL PF 1 MG/10 ML SYRINGE. IV ONE (08:30)
[2019-10-29] MEDS ORDERED: ONDANSETRON PF 4 MG/2 ML VIAL. ONE (08:30)
[2019-10-29] MEDS ORDERED: ePHEDrine PF IN SALINE 50 MG/10 ML SYRINGE. IV ONE (08:31)
[2019-10-29] MEDS ORDERED: SUCCINYLCHOLINE 200 MG/10 ML VIAL. ONE (08:31)
[2019-10-29] MEDS ORDERED: ROCURONIUM 50 MG/5 ML VIAL. ONE (08:32)
[2019-10-29] MEDS ORDERED: MIDAZOLAM HCL/PF 2 MG/2 ML VIAL. ONE (08:33)
[2019-10-29] MEDS ORDERED: fentaNYL PF VIAL 100 MCG/2 ML VIAL ONE ×3 (08:34→11:55)
[2019-10-29] MEDS ORDERED: REMIFENTANIL 2 MG VIAL. IV ONE (08:34)
[2019-10-29] MEDS ORDERED: NEOSTIGMINE METHYLSULFATE 5 MG/5 ML SYRINGE. ONE (09:48)
[2019-10-29] MEDS ORDERED: PROPOFOL 50 ML IV ONE (10:02)
[2019-10-29] MEDS ORDERED: DESFLURANE > 120 MINUTES IH ONE (10:29)
--- NOTE | 2019-10-29 11:14 | OP ---
DATE OF SURGERY: 10/29/2019 PREOPERATIVE DIAGNOSES: Lumbar spinal stenosis, L4-L5 with left lumbar radiculopathy and neurogenic claudication. POSTOPERATIVE DIAGNOSES: Lumbar spinal stenosis, L4-L5 with left lumbar radiculopathy and neurogenic claudication. OPERATION PERFORMED: Left direct laminectomy L4-L5 with decompression of dura and the left L5 root. The operation was done with EMG monitoring, fluoroscopy, microscopic dissection. LEVEL VIAL INSPECTOR: PAIGE Montez assisted with the surgery. She assisted with the exposure, microdecompression as well as the closure. OPERATIVE INDICATIONS: The patient is a pleasant 59-year-old who developed intractable back and left leg pain, which failed conservative measures. On imaging studies, he had significant stenosis at L4-L5 and I recommended a left direct laminectomy. I spoke with him about the surgery, the risks, technique and expected postoperative course and wished for me to go ahead. DESCRIPTION OF PROCEDURE: Following general endotracheal anesthesia, the patient was positioned prone on the Juice table. Lumbar region prepped and draped in standard fashion. DIONISIO hose and AV impulse boots were applied for DVT prophylaxis. A microscope was draped. Fluoroscopy was draped and brought into the field. Monitoring was established. Ancef 2 grams was given less than 1 hour prior to initiation of the surgery. Using fluoroscopic guidance, a midline incision was made directly over the L4-L5 interspace. I dissected down the skin and subcutaneous tissue, reflected the paraspinal muscles, placed a [place] micro disk retractor, brought in the microscope. I confirmed my position fluoroscopically and then drilled the generous hemilaminotomy and tilted the patient away from me and drilled across the midline. I performed a partial foraminotomy. The ligament was extremely thickened, especially in the region of the disk and was markedly compressing to root and in fact scarred to the dura and the root in this location. I gently freed these connections and was able to then peel back and remove the very thickened ligamentum flavum. I explored carefully, the disk was firm, no diskectomy was warranted. I irrigated copiously. I removed the retractor, obtained excellent hemostasis in the muscle layer and then I closed the wound with absorbable suture. Skin was closed with 4-0 subcuticular stitch. The surgery went very well and I was quite pleased with the operation. FEROZ HILL MD DR: Chris JOB#: [id number] / [id number]
[2019-10-29] MEDS ORDERED: ZOLPIDEM 5 MG TABLET. PO PRN ×2 (11:15→12:00)
[2019-10-29] MEDS ORDERED: METHOCARBAMOL 750 MG TABLET PO PRN (11:15)
[2019-10-29] MEDS ORDERED: oxyCODONE IR 5 MG TABLET PO PRN ×2 (11:15→11:30)
[2019-10-29] MEDS ORDERED: PROCHLORPERAZINE 10 MG/2 ML VIAL. ONE (11:19)
[2019-10-29] MEDS ORDERED: MORPHINE SULFATE 2 MG/ML VIAL. ONE ×2 (11:20→11:55)
[2019-10-29] MEDS: fentaNYL PF VIAL 100 MCG/2 ML VIAL IV PRN ×4 (11:26→12:30)
[2019-10-29] MEDS: PROCHLORPERAZINE 10 MG/2 ML VIAL. IV PRN ×2 (11:27→11:57)
[2019-10-29] MEDS: MORPHINE SULFATE 2 MG/ML VIAL. IV PRN ×4 (11:29→12:29)
[2019-10-29] MEDS ORDERED: CALCIUM CARBONATE 500 MG TAB.CHEW PO PRN (11:30)
[2019-10-29] MEDS ORDERED: diphenhydrAMINE HCL 25 MG CAPSULE PO PRN (11:30)
[2019-10-29] MEDS ORDERED: MAGNESIUM HYDROXIDE 2,400 MG/30 ML ORAL.SUSP. PO PRN (11:30)
[2019-10-29] MEDS ORDERED: 0.9 % SODIUM CHLORIDE 10 ML DISP.SYRIN. IV PRN (11:30)
[2019-10-29] MEDS ORDERED: ONDANSETRON PF 4 MG/2 ML VIAL. IVP PRN (11:30)
[2019-10-29] MEDS ORDERED: fentaNYL PF VIAL 100 MCG/2 ML VIAL IVP PRN (11:30)
[2019-10-29] MEDS ORDERED: NALOXONE 0.4 MG/ML VIAL. IV PRN (11:30)
[2019-10-29] MEDS ORDERED: ACETAMINOPHEN 325 MG TABLET. PO PRN (11:30)
[2019-10-29] MEDS ORDERED: MAG HYDROX/ALUMINUM HYD/SIMETH 30 ML ORAL.SUSP PO PRN (11:30)
[2019-10-29] MEDS: POTASSIUM CL 20MEQ D5-0.45NACL 1,000 ML IV SCH (13:00)
[2019-10-29] MEDS: oxyCODONE IR 5 MG TABLET PO PRN (16:04)
--- NOTE | 2019-10-29 16:18 | DISCH ---
DISCHARGE INSTRUCTIONS Condition on Discharge Condition on Discharge: Stable Activity After Discharge Activity Instructions for Disc: Activity as tolerated, Avoid exertion Other activity instructions: no driving for a week Bathing Instructions: Shower-keep dressing dry Lifting Instructions after Dis: No heavy lifting, No pulling or pushing, Do not lift >10 pounds Driving Instructions after Dis: No driving for 2 weeks Diet after Discharge Diet after Discharge: Cardiac Additional Diet Restrictions: resume home diet Diet Texture: Regular Wound Incision Care Wound/Incision Care: Ice to area for comfort, Change dressing, May get incision wet Other wound/incision instructi: may remove dressing in 48 hours if dry then may shower, no soaking Wound Care Equipment: Dressings Contacting the DRConnor after DC Call your doctor for: Concerns you may have Follow-Up Follow up with: Dr. Hill's nurse in 2 weeks [phone] Treatment/Equipment after DC Adaptive Equipment Issued: None FEROZ HILL MD Oct 29, 2019 16:18
[2019-10-29] MEDS: GABAPENTIN 300 MG CAPSULE. PO SCH (20:02)
[2019-10-29] MEDS: DOCUSATE SODIUM 100 MG CAPSULE. PO SCH (20:02)
[2019-10-29] MEDS ORDERED: DOCUSATE SODIUM 100 MG CAPSULE. PO SCH (21:00)
[2019-10-30] MEDS: POTASSIUM CL 20MEQ D5-0.45NACL 1,000 ML IV SCH ×2 (00:37→09:15)
[2019-10-30 02:48] VITALS: BP 106/66
[2019-10-30 07:00] VITALS: BP 117/58
[2019-10-30] MEDS ORDERED: PANTOPRAZOLE 40 MG TABLET.DR. PO SCH (07:30)
[2019-10-30] MEDS: GABAPENTIN 300 MG CAPSULE. PO SCH (08:24)
[2019-10-30] MEDS: DOCUSATE SODIUM 100 MG CAPSULE. PO SCH (08:25)
[2019-10-30] MEDS ORDERED: LISINOPRIL 20 MG TABLET PO SCH (09:00)
[2019-10-30] MEDS ORDERED: MULTIVITAMIN with MINERAL TABLET. PO SCH (09:00)
[2019-10-30] MEDS ORDERED: ASPIRIN CHEWABLE 81 MG TABLET. PO SCH ×2 (09:00)
[2019-10-30] MEDS ORDERED: MELOXICAM 7.5 MG TABLET PO SCH (09:00)
[2019-10-30] MEDS ORDERED: ALLOPURINOL 300 MG TABLET. PO SCH (09:00)
[2019-10-30] MEDS ORDERED: SENNOSIDES 8.6 MG TABLET PO SCH (09:00)
[2019-10-30] MEDS ORDERED: hydroCHLOROthiazide 25 MG TABLET PO SCH (09:00)
[2019-10-30 11:00] VITALS: BP 132/76
[2019-10-30] MEDS: oxyCODONE IR 5 MG TABLET PO PRN (12:18)
--- NOTE | 2019-10-30 12:22 | NUR ---
Discharge Note: PARIS ALEGRIA Discharge instructions and discharge home medications reviewed with Patient and a copy given. All questions have been answered and understanding verbalized. The following instructions and handouts were given: information about plan of care, medications, follow up appointments, weight bearing, activity, etc. Discontinued lines and drains: IV line in left hand removed, catheter tip intact. Patient discharged to home with self care with , wheelchair used for mobility to discharge vehicle.
--- NOTE | 2019-11-01 19:07 | PATHOLOGY ---
[facility] Accession Number: [id number] . 01 Material submitted: . vertebral column - LUMBAR DECOMPRESSION . 01 Clinical history: . LUMBAR STENOSIS WITH NEUROGENIC CLAVDIA . 02 Diagnosis: Segments of fibrocartilaginous tissue and bone, lumbar decompression: - Degenerative changes of fibrocartilaginous tissue. (JPM:universal grinder tool; 11/01/2019) R 11/01/2019 1545 Local . 02 Comment: There is no evidence of an acute inflammatory process or malignancy. (JPM:universal grinder tool; 11/01/2019) . 02 Electronically signed: . Kenny Dillon MD, Pathologist NPI- [id number] . 01 Gross description: . Received in formalin labeled "Rajiv Henriquez, lumbar decompression" is a 3.5 x 2.7 x 1.0 cm aggregate of liu-brown rubbery and gritty soft tissue and bone fragments. Wharf Worker sections are submitted in cassette A1 following decalcification. ([facility] 10/31/2019) [facility] 11/01/2019 1544 Local . 02 Pathologist provided ICD-10: M99.73 . 02 CPT . 272913, [id number] Specimen Comment: A courtesy copy of this report has been sent to [phone] Specimen Comment: Report sent to Performed at: 01 [facility] [address] [facility] [address], [place] [id number] MD Piyush Wilson MD Phone: [phone] Performed at: 02 [facility] [address] [place], [place] [id number] MD Kenny Dillon MD Phone: [phone]
== END 2019-10-30 12:22 | disposition home or self-care (01) ==
LOC: SURG 07:10 → 4 NORTH 11:30
PROVIDERS: ADMIT Neurological Surgery; ATTEND Neurological Surgery
DX: M48.062 Spinal stenosis, lumbar region with neurogenic claudication (principal); M54.16 Radiculopathy, lumbar region; I10 Essential (primary) hypertension; Z87.442 Personal history of urinary calculi; Z90.49 Acquired absence of other specified parts of digestive tract; Z79.899 Other long term (current) drug therapy
CPT/HCPCS: 63047; 76000; 96360; 96361; 97116; 97162; 97530; G0378; G0379; J0330; J0690; J0780; J1100; J1885; J2250; J2270; J2370; J2405; J2704; J2710; J3010; J3480; J7030; A7015